=== PATIENT | male | born 1985 | race Caucasian/White ===

== ENCOUNTER 2024-03-11 06:41 | Inpatient (IN) | payer OTHER ==
[2024-03-11] MEDS ORDERED: LIDOCAINE HCL 1%, 10 MG/ML (20ML VIAL) ONE (08:44)
[2024-03-11 09:13] LABS: HEMATOCRIT 31.4 % (35.4-49); HEMOGLOBIN 10.2 G/dL (11.7-16.9); MCH 29.2 pg (25.7-33.7); MCHC 32.5 g/dl (32.0-35.9); MEAN CELL VOLUME 90.1 fl (80-96); MEAN PLT VOLUME 7.2 fl (7.5-11.1); PLATELET COUNT 52.2 10^3/uL (134-434); RBC 3.49 10^6/uL (4.00-5.60); RDW 14.9 % (11.9-15.9); WHITE BLOOD COUNT 3.7 10^3/uL (4.0-10.8)
[2024-03-11 09:37] LABS: ALK PHOS 206 U/L (45-117); ANION GAP 8 mmol/L (4-13); BILIRUBIN,TOTAL 1.5 mg/dl (0.2-1); CALCIUM 7.8 mg/dl (8.5-10.1); CHLORIDE 102 mmol/L (98-107); CO2 24 mmol/L (21-32); CREATININE 1.2 mg/dl (0.6-1.3); GLUCOSE,RANDOM 97 mg/dl (74-106); POTASSIUM 3.3 mmol/L (3.5-5.1); SGOT/AST 58 U/L (15-37); SGPT/ALT 19 U/L (7-52); SODIUM 134 mmol/L (136-145); TOT PROT 6.9 g/dl (6.4-8.2)
[2024-03-11 09:51] LABS: PLATELET ESTIMATE DECREASED
[2024-03-11] MEDS ORDERED: cefTRIAXone SODIUM 1 GM VIAL ONE (10:03)
[2024-03-11] MEDS: CEFTRIAXONE 1 GM in DEXTROSE 5%-WATER - 100 ML IVPB ONE (10:09)
[2024-03-11 10:15] LABS: VENOUS BASE EXCESS -7.4 mmol/L (-2-2); VENOUS O2 SATURATION 99.4 % (70-80); VENOUS PCO2 33.9 mmHg (38-52); VENOUS PH 7.335 (7.310-7.410)
[2024-03-11 10:26] LABS: INR 1.18 (0.83-1.09); PROTHROMBIN TIME (PATIENT) 13.4 SEC (9.7-13.0)
[2024-03-11 10:28] LABS: ACTIVATED PTT 36.1 SECONDS (25.2-36.5)
[2024-03-11 10:30] LABS: N-TERMINAL BNP 184.8 pg/ml (5-125)
[2024-03-11 12:01] LABS: BF WBC & OTHER NUCLEATED CELLS 239 /mm3
[2024-03-11 12:39] LABS: BODY FLUID MACROPHAGES 56 %; BODY FLUID MONOCYTE 5 %
[2024-03-11] MEDS: ALBUMIN HUMAN 25% 12.5 GM/50 ML VIAL IV ONE (13:56)
[2024-03-11 14:02] LABS: HIV INTERPRETATION NEGATIVE (NEGATIVE)
[2024-03-11 14:02] LABS: EPITHELIAL CELLS 0-5 /hpf
[2024-03-11] MEDS: HEPARIN NA (PORCINE) 5,000 UNITS/ML 1ML VIAL SQ SCH (21:15)
[2024-03-12] MEDS: chlordiazePOXIDE HCL 25 MG CAPSULE PO SCH (07:15)
[2024-03-12] MEDS ORDERED: chlordiazePOXIDE HCL 25 MG CAPSULE PO PRN (08:56)
[2024-03-12 08:57] LABS: BASO % 0.8 % (0-2.0); EOS % 0.2 % (0-4.5); HEMATOCRIT 29.8 % (35.4-49); HEMOGLOBIN 9.8 GM/dL (11.7-16.9); LYMPH % 4.5 % (8-40); MCH 29.9 pg (25.7-33.7); MCHC 32.9 g/dl (32.0-35.9); MEAN CELL VOLUME 90.9 fl (80-96); MEAN PLT VOLUME 6.2 fl (7.5-11.1); MONO % 6.3 % (3.8-10.2); NEUT % 88.2 % (42.8-82.8); PLATELET COUNT 56 10^3/uL (134-434); RBC 3.28 M/mm3 (4.00-5.60); RDW 14.8 % (11.9-15.9); WHITE BLOOD COUNT 7.5 K/mm3 (4.0-10.0)
[2024-03-12 09:07] LABS: POTASSIUM 3.5 mmol/L (3.5-5.1)
[2024-03-12 09:09] LABS: BLOOD UREA NITROGEN 20.4 mg/dL (7-18)
[2024-03-12 09:13] LABS: CREATININE 1.5 mg/dL (0.55-1.3)
[2024-03-12] MEDS: LORazepam 1 MG TABLET PO ONE (09:18)
[2024-03-12] MEDS: IBUPROFEN 400 MG TABLET (FP) PO ONE (09:29)
[2024-03-12] MEDS ORDERED: IBUPROFEN 200 MG TABLET PO ONE (09:30)
[2024-03-12] MEDS: SPIRONOLACTONE 25 MG TABLET PO SCH (09:31)
[2024-03-12] MEDS: LACTULOSE 20 GM/30 ML UDC (FOR ORAL USE ONLY) PO SCH (09:31)
[2024-03-12] MEDS ORDERED: cloNIDine HCL 0.1 MG TABLET PO PRN (09:55)
[2024-03-12] MEDS: LACTATED RINGERS SOLUTION 1,000 ML/1,000 ML INFUS.BAG IV SCH (11:10)
[2024-03-12 11:20] LABS: ANISOCYTOSIS 1+; MACROCYTOSIS 0
[2024-03-12] MEDS: FOLIC ACID 1 MG TABLET (FP) PO SCH (11:55)
[2024-03-12] MEDS: THIAMINE HCL 200 MG/2 ML VIAL IVPB SCH (11:59)
[2024-03-12 12:09] LABS: MAGNESIUM 1.6 mg/dL (1.8-2.4)
[2024-03-12 12:13] LABS: PHOSPHOROUS 5.1 mg/dL (2.5-4.9)
[2024-03-12] MEDS: ALBUMIN HUMAN 25% 100 ML VIAL IV SCH (16:55)
[2024-03-12] MEDS: SODIUM CHLORIDE 0.9% 500 ML INFUS.BAG IV ONE (17:09)
[2024-03-12] MEDS: MAGNESIUM 1GM/D5W - 1 GM/100 ML IVPB IVPB ONE (17:10)
[2024-03-13] MEDS: chlordiazePOXIDE HCL 25 MG CAPSULE PO SCH (05:19)
[2024-03-13 12:23] LABS: BASO % 0.8 % (0-2.0); EOS % 3.5 % (0-4.5); HEMATOCRIT 28.6 % (35.4-49); HEMOGLOBIN 9.5 GM/dL (11.7-16.9); LYMPH % 11.7 % (8-40); MCH 30.1 pg (25.7-33.7); MCHC 33.3 g/dl (32.0-35.9); MEAN CELL VOLUME 90.4 fl (80-96); MEAN PLT VOLUME 6.5 fl (7.5-11.1); PLATELET COUNT 64 10^3/uL (134-434); RBC 3.16 M/mm3 (4.00-5.60); RDW 14.9 % (11.9-15.9); WHITE BLOOD COUNT 4.1 K/mm3 (4.0-10.0)
[2024-03-13 12:29] LABS: INR 1.33 (0.83-1.09); PROTHROMBIN TIME (PATIENT) 15.2 SEC (9.7-13.0)
[2024-03-13 12:49] LABS: POTASSIUM 3.4 mmol/L (3.5-5.1)
[2024-03-13 12:52] LABS: CALCIUM 8.4 mg/dL (8.5-10.1)
[2024-03-13 12:53] LABS: BLOOD UREA NITROGEN 28.9 mg/dL (7-18)
[2024-03-13 12:56] LABS: CREATININE 1.7 mg/dL (0.55-1.3)
[2024-03-13 12:57] LABS: TOT PROT 7.9 g/dl (6.4-8.2)
[2024-03-13 13:01] LABS: ALBUMIN 3.7 g/dl (3.4-5.0)
[2024-03-13 19:55] LABS: BILIRUBIN,DIRECT 1.5 mg/dL (0.0-0.2)
[2024-03-14] MEDS ORDERED: chlordiazePOXIDE HCL 10 MG CAPSULE PO PRN
[2024-03-14] MEDS: chlordiazePOXIDE HCL 10 MG CAPSULE PO SCH (05:56)
[2024-03-14 07:07] LABS: ALPHA-1-ANTITRYPSIN SERUM 178 mg/dL (95-164)
[2024-03-14 13:25] LABS: HEMATOCRIT 28.8 % (35.4-49); HEMOGLOBIN 9.6 GM/dL (11.7-16.9); MCH 30.2 pg (25.7-33.7); MCHC 33.3 g/dl (32.0-35.9); MEAN CELL VOLUME 90.7 fl (80-96); MEAN PLT VOLUME 6.7 fl (7.5-11.1); PLATELET COUNT 75 10^3/uL (134-434); RBC 3.18 M/mm3 (4.00-5.60); RDW 15.2 % (11.9-15.9); WHITE BLOOD COUNT 4.5 K/mm3 (4.0-10.0)
[2024-03-14 13:51] LABS: POTASSIUM 3.4 mmol/L (3.5-5.1)
[2024-03-14 13:53] LABS: CALCIUM 8.2 mg/dL (8.5-10.1)
[2024-03-14 13:54] LABS: ALBUMIN 4.1 g/dl (3.4-5.0); MAGNESIUM 1.8 mg/dL (1.8-2.4)
[2024-03-14 13:57] LABS: CREATININE 1.8 mg/dL (0.55-1.3)
[2024-03-14 13:58] LABS: BILIRUBIN,TOTAL 2.5 mg/dL (0.2-1)
[2024-03-14 13:59] LABS: TOT PROT 7.8 g/dl (6.4-8.2)
[2024-03-14] MEDS ORDERED: LORazepam 1 MG TABLET PO PRN (14:25)
[2024-03-14 15:09] LABS: BODY FLUID ALBUMIN 1.4 g/dL (Not Estab.)
[2024-03-14 15:55] LABS: BF WBC & OTHER NUCLEATED CELLS 328 /mm3
[2024-03-14 16:51] LABS: BODY FLUID MACROPHAGES 70 %; BODY FLUID MESOTHELIAL 2 %; BODY FLUID MONOCYTE 5 %
[2024-03-14] MEDS: LORazepam 1 MG TABLET PO SCH (17:46)
[2024-03-15] MEDS ORDERED: chlordiazePOXIDE HCL 10 MG CAPSULE PO SCH (05:00)
[2024-03-15] MEDS: LORazepam 0.5 MG TABLET PO SCH (05:15)
[2024-03-15 09:07] LABS: HEMATOCRIT 31.4 % (35.4-49); HEMOGLOBIN 10.7 GM/dL (11.7-16.9); MCH 30.9 pg (25.7-33.7); MEAN CELL VOLUME 90.7 fl (80-96); MEAN PLT VOLUME 6.6 fl (7.5-11.1); PLATELET COUNT 85 10^3/uL (134-434); RBC 3.47 M/mm3 (4.00-5.60); RDW 15.2 % (11.9-15.9); WHITE BLOOD COUNT 5.4 K/mm3 (4.0-10.0)
[2024-03-15 09:45] LABS: POTASSIUM 3.7 mmol/L (3.5-5.1)
[2024-03-15 09:51] LABS: BLOOD UREA NITROGEN 30.6 mg/dL (7-18)
[2024-03-15 09:55] LABS: ALBUMIN 4.4 g/dl (3.4-5.0)
[2024-03-15 09:57] LABS: CALCIUM 8.8 mg/dL (8.5-10.1)
[2024-03-15 09:58] LABS: BILIRUBIN,TOTAL 2.5 mg/dL (0.2-1); TOT PROT 7.8 g/dl (6.4-8.2)
[2024-03-15 09:59] LABS: CREATININE 1.8 mg/dL (0.55-1.3)
[2024-03-15] MEDS: SPIRONOLACTONE 25 MG TABLET PO SCH (13:13)
[2024-03-15 18:59] LABS: EPI CELLS 2 /uL (0-25.1); HYALINE CASTS 0 /uL (0-3.1); PH,URINE 6.5 (5.0-8.0); URINE APPEARANCE CLEAR; URINE BACTERIA 3 /uL (0-1359); URINE BILIRUBIN NEGATIVE (NEGATIVE); URINE COLOR YELLOW; URINE GLUCOSE (UA) NEGATIVE (NEGATIVE); URINE KETONE NEGATIVE (NEGATIVE); URINE LEUK ESTERASE NEGATIVE (NEGATIVE); URINE NITRITE NEGATIVE (NEGATIVE); URINE PROTEIN 4+ (NEGATIVE); URINE RBC 27 /uL (0-23.9); URINE WBC 2 /uL (0-25.8)
[2024-03-16] MEDS ORDERED: chlordiazePOXIDE HCL 10 MG CAPSULE PO ONE (05:00)
[2024-03-16] MEDS: LORazepam 0.5 MG TABLET PO ONE (05:43)
[2024-03-16 09:50] LABS: HEMATOCRIT 30.7 % (35.4-49); MCH 29.7 pg (25.7-33.7); MCHC 32.5 g/dl (32.0-35.9); MEAN CELL VOLUME 91.4 fl (80-96); MEAN PLT VOLUME 6.9 fl (7.5-11.1); PLATELET COUNT 97 10^3/uL (134-434); RBC 3.36 M/mm3 (4.00-5.60); RDW 14.9 % (11.9-15.9); WHITE BLOOD COUNT 7.2 K/mm3 (4.0-10.0)
[2024-03-16 10:10] LABS: POTASSIUM 3.8 mmol/L (3.5-5.1)
[2024-03-16 10:16] LABS: CALCIUM 8.9 mg/dL (8.5-10.1)
[2024-03-16 10:19] LABS: BILIRUBIN,TOTAL 2.3 mg/dL (0.2-1); TOT PROT 7.9 g/dl (6.4-8.2)
[2024-03-16 12:07] LABS: BODY FLUID ALBUMIN 2.2 g/dL (Not Estab.)
[2024-03-16] MEDS: POLYETHYLENE GLYCOL (HEALTHYLAX) 3350 17 GM PACKET PO SCH (17:19)
[2024-03-17] MEDS ORDERED: LORazepam 0.5 MG TABLET PO PRN
[2024-03-17 08:51] LABS: HEMATOCRIT 31.4 % (35.4-49); HEMOGLOBIN 10.2 GM/dL (11.7-16.9); MCH 29.9 pg (25.7-33.7); MCHC 32.5 g/dl (32.0-35.9); MEAN CELL VOLUME 91.8 fl (80-96); MEAN PLT VOLUME 6.5 fl (7.5-11.1); PLATELET COUNT 91 10^3/uL (134-434); RBC 3.42 M/mm3 (4.00-5.60); RDW 14.9 % (11.9-15.9); WHITE BLOOD COUNT 6.1 K/mm3 (4.0-10.0)
[2024-03-17 09:11] LABS: POTASSIUM 4.1 mmol/L (3.5-5.1)
[2024-03-17 09:19] LABS: ALBUMIN 3.8 g/dl (3.4-5.0); BLOOD UREA NITROGEN 40.5 mg/dL (7-18)
[2024-03-17 09:21] LABS: CREATININE 2.2 mg/dL (0.55-1.3)
[2024-03-17 09:22] LABS: BILIRUBIN,TOTAL 1.8 mg/dL (0.2-1); TOT PROT 7.7 g/dl (6.4-8.2)
[2024-03-17] MEDS: ACETAMINOPHEN 325 MG TABLET (FP) PO ONE (12:00)
[2024-03-17] MEDS: OCTREOTIDE ACETATE 100 MCG/1 ML SQ SCH (16:52)
[2024-03-17] MEDS: MIDODRINE HCL 2.5 MG TABLET PO SCH (16:54)
[2024-03-18] MEDS: THIAMINE 100 MG TABLET PO SCH (10:08)
[2024-03-18 11:18] LABS: POTASSIUM 4.4 mmol/L (3.5-5.1)
[2024-03-18 11:23] LABS: HEMATOCRIT 31.4 % (35.4-49); HEMOGLOBIN 10.4 GM/dL (11.7-16.9); MCH 30.3 pg (25.7-33.7); PLATELET COUNT 104 10^3/uL (134-434); RBC 3.42 M/mm3 (4.00-5.60); RDW 14.8 % (11.9-15.9); WHITE BLOOD COUNT 5.9 K/mm3 (4.0-10.0)
[2024-03-18 11:45] LABS: CALCIUM 9.1 mg/dL (8.5-10.1)
[2024-03-18 11:46] LABS: BLOOD UREA NITROGEN 36.6 mg/dL (7-18)
[2024-03-18 11:49] LABS: CREATININE 2.3 mg/dL (0.55-1.3)
[2024-03-18 11:51] LABS: BILIRUBIN,TOTAL 2.2 mg/dL (0.2-1); TOT PROT 8.1 g/dl (6.4-8.2)
[2024-03-19] MEDS: MIDODRINE HCL 5 MG, MIDODRINE HCL 2.5 MG PO SCH (09:20)
[2024-03-19 09:42] LABS: BASO % 1.7 % (0-2.0); EOS % 4.8 % (0-4.5); HEMATOCRIT 31.7 % (35.4-49); HEMOGLOBIN 10.6 GM/dL (11.7-16.9); MCH 30.6 pg (25.7-33.7); MCHC 33.5 g/dl (32.0-35.9); MEAN CELL VOLUME 91.4 fl (80-96); MEAN PLT VOLUME 6.8 fl (7.5-11.1); MONO % 10.6 % (3.8-10.2); NEUT % 67.9 % (42.8-82.8); PLATELET COUNT 111 10^3/uL (134-434); RBC 3.46 M/mm3 (4.00-5.60); RDW 15.2 % (11.9-15.9); WHITE BLOOD COUNT 5.1 K/mm3 (4.0-10.0)
[2024-03-19 09:45] LABS: INR 1.29 (0.83-1.09); PROTHROMBIN TIME (PATIENT) 14.7 SEC (9.7-13.0)
[2024-03-19 09:52] LABS: POTASSIUM 4.1 mmol/L (3.5-5.1)
[2024-03-19 09:55] LABS: BLOOD UREA NITROGEN 41.8 mg/dL (7-18); CALCIUM 9.1 mg/dL (8.5-10.1)
[2024-03-19 09:58] LABS: CREATININE 2.4 mg/dL (0.55-1.3)
[2024-03-19 10:01] LABS: BILIRUBIN,TOTAL 2.2 mg/dL (0.2-1); TOT PROT 8.6 g/dl (6.4-8.2)
[2024-03-20 09:12] LABS: HEMATOCRIT 26.9 % (35.4-49); HEMOGLOBIN 9.1 GM/dL (11.7-16.9); MCH 30.1 pg (25.7-33.7); MCHC 33.6 g/dl (32.0-35.9); MEAN CELL VOLUME 89.6 fl (80-96); MEAN PLT VOLUME 6.5 fl (7.5-11.1); PLATELET COUNT 92 10^3/uL (134-434); RBC 3.01 M/mm3 (4.00-5.60); RDW 14.6 % (11.9-15.9); WHITE BLOOD COUNT 3.9 K/mm3 (4.0-10.0)
[2024-03-20 09:20] LABS: INR 1.38 (0.83-1.09); PROTHROMBIN TIME (PATIENT) 15.5 SEC (9.7-13.0)
[2024-03-20 09:49] LABS: POTASSIUM 4.7 mmol/L (3.5-5.1)
[2024-03-20 10:10] LABS: ALBUMIN 3.8 g/dl (3.4-5.0)
[2024-03-20 10:12] LABS: BLOOD UREA NITROGEN 36.8 mg/dL (7-18); CREATININE 2.2 mg/dL (0.55-1.3); TOT PROT 7.8 g/dl (6.4-8.2)
[2024-03-20] MEDS: MIDODRINE HCL 5 MG, MIDODRINE HCL 2.5 MG PO SCH (10:20)
[2024-03-20] MEDS: PHYTONADIONE 5 MG TABLET PO ONE (17:20)
[2024-03-21 08:36] LABS: HEMATOCRIT 30.7 % (35.4-49); HEMOGLOBIN 9.9 GM/dL (11.7-16.9); MCH 29.2 pg (25.7-33.7); MCHC 32.2 g/dl (32.0-35.9); MEAN CELL VOLUME 90.8 fl (80-96); MEAN PLT VOLUME 6.9 fl (7.5-11.1); PLATELET COUNT 103 10^3/uL (134-434); RBC 3.39 M/mm3 (4.00-5.60); RDW 14.6 % (11.9-15.9)
[2024-03-21 08:46] LABS: POTASSIUM 4.3 mmol/L (3.5-5.1)
[2024-03-21 08:50] LABS: ALBUMIN 3.6 g/dl (3.4-5.0); CALCIUM 8.8 mg/dL (8.5-10.1)
[2024-03-21 08:51] LABS: BLOOD UREA NITROGEN 37.2 mg/dL (7-18)
[2024-03-21 08:54] LABS: CREATININE 2.2 mg/dL (0.55-1.3)
[2024-03-21 08:55] LABS: TOT PROT 7.8 g/dl (6.4-8.2)
[2024-03-21] MEDS: SODIUM CHLORIDE 0.45% 1,000 ML IV SCH (13:57)
[2024-03-22 08:47] LABS: HEMATOCRIT 29.7 % (35.4-49); HEMOGLOBIN 9.8 GM/dL (11.7-16.9); MCH 29.8 pg (25.7-33.7); MEAN CELL VOLUME 90.3 fl (80-96); MEAN PLT VOLUME 6.9 fl (7.5-11.1); PLATELET COUNT 106 10^3/uL (134-434); RBC 3.28 M/mm3 (4.00-5.60); RDW 14.5 % (11.9-15.9); WHITE BLOOD COUNT 4.9 K/mm3 (4.0-10.0)
[2024-03-22 09:04] LABS: POTASSIUM 4.3 mmol/L (3.5-5.1)
[2024-03-22 09:09] LABS: ALBUMIN 3.8 g/dl (3.4-5.0); BLOOD UREA NITROGEN 36.8 mg/dL (7-18); CALCIUM 8.7 mg/dL (8.5-10.1)
[2024-03-22 09:12] LABS: CREATININE 2.2 mg/dL (0.55-1.3)
[2024-03-22 09:14] LABS: BILIRUBIN,TOTAL 1.9 mg/dL (0.2-1)
[2024-03-22 17:20] LABS: PH,URINE 6.5 (5.0-8.0); URINE APPEARANCE CLEAR; URINE BILIRUBIN NEGATIVE (NEGATIVE); URINE COLOR YELLOW; URINE GLUCOSE (UA) NEGATIVE (NEGATIVE); URINE KETONE NEGATIVE (NEGATIVE); URINE LEUK ESTERASE NEGATIVE (NEGATIVE); URINE NITRITE NEGATIVE (NEGATIVE); URINE PROTEIN 2+ (NEGATIVE); URINE UROBILINOGEN 0.2 mg/dL (0.2-1.0)
[2024-03-22 17:33] LABS: EPI CELLS 1.3 /uL (0-25.1); HYALINE CASTS 0.41 /uL (0-3.1); URINE BACTERIA 0.9 /uL (0-1359); URINE RBC 12.8 /uL (0-23.9); URINE WBC 1.3 /uL (0-25.8)
[2024-03-23 09:35] LABS: HEMOGLOBIN 9.1 GM/dL (11.7-16.9); MCH 29.5 pg (25.7-33.7); MCHC 32.5 g/dl (32.0-35.9); MEAN CELL VOLUME 90.8 fl (80-96); MEAN PLT VOLUME 7.1 fl (7.5-11.1); PLATELET COUNT 113 10^3/uL (134-434); RBC 3.09 M/mm3 (4.00-5.60); RDW 14.4 % (11.9-15.9); WHITE BLOOD COUNT 4.3 K/mm3 (4.0-10.0)
[2024-03-23 10:03] LABS: POTASSIUM 4.4 mmol/L (3.5-5.1)
[2024-03-23 10:05] LABS: BLOOD UREA NITROGEN 33.6 mg/dL (7-18); CALCIUM 8.8 mg/dL (8.5-10.1)
[2024-03-23 10:06] LABS: ALBUMIN 3.6 g/dl (3.4-5.0)
[2024-03-23 10:09] LABS: CREATININE 2.2 mg/dL (0.55-1.3)
[2024-03-23 10:11] LABS: BILIRUBIN,TOTAL 1.8 mg/dL (0.2-1); TOT PROT 7.9 g/dl (6.4-8.2)
[2024-03-23 16:08] VITALS: RESP 18; TEMP 98.8
[2024-03-23 16:12] VITALS: BMI 25.9
[2024-03-23 18:19] VITALS: BP 136/104; PULSE 88
[2024-03-24 17:07] LABS: FREE KAPPA,SERUM 134.2 mg/L (3.3-19.4)
[2024-03-24 17:07] LABS: ANTIGLOMERULAR BASEMENT MEN.AB <0.2 units (0.0-0.9); C-ANCA <1:20 titer (Neg:<1:20)
== END 2024-03-23 19:25 | disposition home or self-care (01) | DRG 280 ==
LOC: FER 06:41 → J6S 17:11
PROVIDERS: ADMIT Internal Medicine; ATTEND Student in an Organized Health Care Education/Training Program
PROC: 0W9G3ZZ Drainage of Peritoneal Cavity, Percutaneous Approach (ICD-10-PCS; principal; 2024-03-11)
PROC: 0W9G3ZZ Drainage of Peritoneal Cavity, Percutaneous Approach (ICD-10-PCS; 2024-03-14)
DX: K70.31 Alcoholic cirrhosis of liver with ascites (principal); D68.9 Coagulation defect, unspecified; N17.9 Acute kidney failure, unspecified; D69.6 Thrombocytopenia, unspecified; E83.42 Hypomagnesemia; K76.6 Portal hypertension; D63.8 Anemia in other chronic diseases classified elsewhere; F10.239 Alcohol dependence with withdrawal, unspecified; K43.9 Ventral hernia without obstruction or gangrene; K70.9 Alcoholic liver disease, unspecified; E87.20 Acidosis, unspecified; R33.9 Retention of urine, unspecified; N18.9 Chronic kidney disease, unspecified; R80.9 Proteinuria, unspecified
CPT/HCPCS: 0241U-QW; 36415; 74177-TC; 74181-TC; 76705-TC; 76775-TC; 76942-TC; 80048; 80053; 80307; 81003; 81015; 82042; 82103; 82140; 82150; 82248; 82465; 82570; 82728; 82803; 82945; 83036; 83516; 83520; 83540; 83550; 83605; 83615; 83690; 83735; 83880; 83883; 83986; 84100; 84155; 84156; 84157; 84165; 84300; 84478; 84484; 85025; 85027; 85384; 85610; 85730; 86038; 86160; 86225; 86256; 86704; 86705; 86708; 86709; 86803; 86850; 86900; 86901; 87070; 87075; 87205; 87340; 87389; 87517; 87522; 87902; 88108; 88305-TC; 93005; 93306-TC; 93975; 99291; J1644; P9047; Q9967